=== PATIENT | female | born 1960 | race Caucasian/White ===

== ENCOUNTER 2017-02-12 22:26 | Emergency (ER) | payer BC ==
[~2017-02-12] VITALS: Ht 162.5 cm; Wt 64.9 kg
[~2017-02-12 22:26] MED LIST: IBU-6600 MG PO; NKHM
[2017-02-12] MEDS ORDERED: SEPTDS PO (22:57)
[2017-02-12] MEDS ORDERED: BENADRYL ALLERG25 M5 PO (22:57)
== END 2017-02-12 23:20 | disposition home or self-care (01) ==
LOC: ED 22:26
DX: L03.114 Cellulitis of left upper limb (principal); F17.200 Nicotine dependence, unspecified, uncomplicated; Z93.3 Colostomy status

== ENCOUNTER 2023-04-02 22:01 | Emergency (ER) | payer MEDICARE ==
[~2023-04-02] VITALS: Ht 167.6 cm; Wt 72.6 kg
[~2023-04-02 22:01] MED LIST changes: +BENADRYL ALLERG25 M5 PO; +SEPTDS PO
[2023-04-02 22:14] VITALS: BP 138/76
[2023-04-02 22:31] LABS: BASO # 0.1 10*3/uL (0.0-0.1); BASO % 0.6 % (0.0-1.0); EOS # 0.1 10*3/uL (0.0-0.4); EOS % 1.1 % (1.0-4.0); HEMATOCRIT 49.9 % (37.0-47.0); LYMPH # 3.3 10*3/uL (1.3-4.4); LYMPH % 26.5 % (27.0-41.0); MEAN CELL VOLUME 98.8 fl (81.0-99.0); MEAN CORPUSCULAR HGB 30.5 pg (27.0-31.0); MEAN CORPUSCULAR HGB CONC 30.9 g/dl (33.0-37.0); MEAN PLATELET VOLUME 11.6 fl (9.6-12.3); MONO # 0.7 10*3/uL (0.1-1.0); MONO % 5.7 % (3.0-9.0); NEUT # 8.1 10*3/uL (2.3-7.9); NEUT % 65.9 % (47.0-73.0); PLATELET COUNT AUTOMATED 172 10*3/uL (130-400); RED BLOOD COUNT 5.05 10*6/uL (4.10-5.10); RED CELL DISTRI WIDTH 13.1 % (0-14.5); WHITE BLOOD COUNT 12.4 10*3/uL (4.8-10.8)
[2023-04-02 22:47] LABS: ACT PARTIAL THROMBO TIME 25.1 SECONDS (20.0-32.1)
[2023-04-02 22:53] LABS: ALKALINE PHOSPHATASE 84 U/L (46-116); BUN 10 mg/dl (9-23); CHLORIDE 107 mmol/L (98-107); LIPASE 49 U/L (12-53); SGPT/ALT 15 U/L (5-49); TOTAL PROTEIN 7.4 gm/dL (6.0-8.0)
[2023-04-03 02:00] VITALS: BP 130/79
[2023-04-03 06:57] VITALS: BP 110/70
[2023-04-03 07:32] VITALS: BP 142/73
[2023-04-03 09:44] LABS: BASO # 0.1 10*3/uL (0.0-0.1); BASO % 0.6 % (0.0-1.0); EOS # 0.2 10*3/uL (0.0-0.4); EOS % 1.5 % (1.0-4.0); HEMATOCRIT 46.3 % (37.0-47.0); LYMPH # 3.6 10*3/uL (1.3-4.4); LYMPH % 29.4 % (27.0-41.0); MEAN CELL VOLUME 97.3 fl (81.0-99.0); MEAN CORPUSCULAR HGB 30.3 pg (27.0-31.0); MEAN CORPUSCULAR HGB CONC 31.1 g/dl (33.0-37.0); MEAN PLATELET VOLUME 11.5 fl (9.6-12.3); MONO % 7.7 % (3.0-9.0); NEUT # 7.5 10*3/uL (2.3-7.9); NEUT % 60.6 % (47.0-73.0); PLATELET COUNT AUTOMATED 170 10*3/uL (130-400); RED BLOOD COUNT 4.76 10*6/uL (4.10-5.10); RED CELL DISTRI WIDTH 12.9 % (0-14.5); WHITE BLOOD COUNT 12.4 10*3/uL (4.8-10.8)
[2023-04-03 10:03] LABS: BUN 8 mg/dl (9-23); CHLORIDE 111 mmol/L (98-107); POTASSIUM 4.1 mmol/L (3.4-5.1)
[2023-04-03 11:40] VITALS: BP 112/66
[2023-04-03 15:40] VITALS: BP 102/90
== END 2023-04-03 15:39 | disposition short-term general hospital (02) ==
LOC: ED 22:01 → EDHOLD 23:47 → ED 23:47
PROVIDERS: Family Medicine; Internal Medicine
DX: A41.9 Sepsis, unspecified organism (principal); R65.20 Severe sepsis without septic shock; J18.9 Pneumonia, unspecified organism; I63.9 Cerebral infarction, unspecified; Z98.890 Other specified postprocedural states